=== PATIENT | male | born 1985 | race Two or more races ===

== ENCOUNTER 2020-07-03 09:18 | Outpatient (CLI) | payer BC | END 2020-07-03 23:59 | disposition home or self-care (01) | LOC: MSC 09:18 | PROVIDERS: ATTEND Internal Medicine | DX: Z20.828 Contact with and (suspected) exposure to other viral communicable diseases (principal); R63.5 Abnormal weight gain; I10 Essential (primary) hypertension; F32.9 Major depressive disorder, single episode, unspecified; M54.9 Dorsalgia, unspecified | CPT/HCPCS: 99212; C9803; U0003 ==